=== PATIENT | female | born 1990 | race Caucasian/White ===

== ENCOUNTER 2017-01-18 07:35 | Emergency (ER) | payer OTHER ==
--- NOTE | 2017-01-18 07:44 | PDOC ---
History of Present Illness - General Chief Complaint: Urinary Problem Stated Complaint: BURNING ON URINATION WITH PAIN 3 DAYS Time Seen by Provider: 01/18/17 07:43 History Source: Patient Exam Limitations: No Limitations - History of Present Illness Travel History: No Initial Comments: 01/18/17 08:12 26y F no pmhx presents with complaint of dysuria and urinary frequency for several days. Pt notes burning and minimal suprapubic discomfort. no fevers, back pain, foul smelling urine. pt notes prior history of UTIs whenshe was young, but non recently. LMP just completed +sexual active, no vaginal discharge or bleeding Past History - Past Medical History Allergies/Adverse Reactions: Allergies Allergy/AdvReac Type Severity Reaction Status Date / Time No Known Allergies Allergy Verified 01/18/17 07:38 Home Medications: Ambulatory Orders Nitrofurantoin Monohyd/M-Cryst [Macrobid -] 100 mg PO BID #10 capsule 01/18/17 Phenazopyridine HCl [Azo Standard] 95 mg PO PRN 01/18/17 Asthma: Yes ( A CHILD) - Suicide/Smoking/Psychosocial Hx Smoking History: Current every day smoker Have you smoked in the past 12 months: Yes Number of Cigarettes Smoked Daily: 2 'Breaking Loose' booklet given: 02/27/14 Hx Alcohol Use: No Review of Systems - Review of Systems Able to Perform ROS?: Yes Comments:: 01/18/17 08:14 Constitutional - no reported Fever, Chills, Abd/GI: no reported abd pain, nausea, vomiting, blood per rectum, melena, diarrhea : +dysuria, frequency, no reported discharge Musculskelatal - no reported back pain, *Physical Exam - Physical Exam Comments: 01/18/17 08:14 GENERAL: The patient is awake, alert, and fully oriented, Nontoxic - in no acute distress. ABDOMEN: Soft, nontender, normoactive bowel sounds. No guarding, no rebound. . No CVA tenderness Medical Decision Making - Medical Decision Making 01/18/17 08:15 ua to r/o uti u cx sent well appearing no signs of pyelo or bacteremia or urosepsis 01/18/17 08:28 ua c/w with UTI will treat with macrobid return precuautions were discussed including for worsening sympoms and sypmtoms of pyelo I discussed the physical exam findings, ancillary test results and final diagnoses with the patient. I answered all of the patient's questions. The patient was satisfied with the care received and felt comfortable with the discharge plan and treatment plan. The patient will call their primary care physician within 24 hours to arrange follow-up and will return to the Emergency Department with any new, persistent or worsening symptoms. *DC/Admit/Observation/Transfer Diagnosis at time of Disposition: Urinary tract infection Qualifiers: Urinary tract infection type: acute cystitis Hematuria presence: with hematuria Qualified Code(s): N30.01 - Acute cystitis with hematuria - Discharge Dispostion Disposition: HOME Condition at time of disposition: Stable Admit: No - Prescriptions Prescriptions: Nitrofurantoin Monohyd/M-Cryst [Macrobid -] 100 mg PO BID #10 capsule - Referrals Referrals: Harley Garcia MD [Staff Physician] - - Patient Instructions Printed Discharge Instructions: DI for Urinary Tract Infection (UTI) Additional Instructions: Return to the emergency department immediately with ANY new, persistent or worsening symptoms including worsening abdominal pain, fevers, back pain, inability to tolerate oral intake or any other concerns. Stay well hydrated. Take the antibiotics as prescribed. Stop taking the Azo after tomorrow so you know if your antibiotics are working. You MUST call and follow up with your doctor tomorrow. Your emergency department visit is not complete without a followup with your doctor for reevaluation. Please make sure your doctor reviews the results of your emergency evaluation. Print Language: SERBIAN - Post Discharge Activity
[2017-01-18 07:50] VITALS: BP 106/73; PULSE 64; TEMP 98.6; BMI 23.3
[2017-01-18 08:04] LABS: URINE APPEARANCE Clear; URINE BILIRUBIN 1+ (NEGATIVE); URINE GLUCOSE (UA) Trace (NEGATIVE); URINE KETONE Trace (NEGATIVE); URINE NITRITE Positive (NEGATIVE)
[2017-01-18 08:08] LABS: URINE BLOOD 3+ (NEGATIVE); URINE COLOR YELLOW; URINE LEUK ESTERASE 1+ (NEGATIVE); URINE PROTEIN 2+ (NEGATIVE)
[2017-01-18 09:28] LABS: URINE RBC >100 /hpf (0-3)
[2017-01-18 09:29] LABS: URINE BACTERIA MANY /hpf (NEGATIVE)
== END 2017-01-18 08:41 | disposition home or self-care (01) ==
LOC: FER 07:35
DX: N30.01 Acute cystitis with hematuria (principal); F17.210 Nicotine dependence, cigarettes, uncomplicated
CPT/HCPCS: 81003; 81015; 84703; 87086; 87186; 99281-25